=== PATIENT | male | born 1980 | race Caucasian/White ===

== ENCOUNTER 2016-09-01 22:21 | Emergency (ER) | payer BC ==
[~2016-09-01] VITALS: Ht 177.8 cm; Wt 107.8 kg
[~2016-09-01 22:21] MED LIST: ACET-1311 PO; IBUP-103 PO
[2016-09-01 22:31] VITALS: BP 152/96; PULSE 82; TEMP 36.7; O2SAT 96; Ht 177.8 cm; Wt 107.8 kg
--- NOTE | 2016-09-01 22:50 | EMERGENCY ROOM VISIT NOTE ---
ED Visit Note First contact with patient: 22:31 CHIEF COMPLAINT: Right upper dental pain 3 hours HISTORY OF PRESENT ILLNESS: Patient is a 35-year-old white male who presents emergency department for evaluation of right upper dental pain. He states that he has a small cavity in that tooth. He was recently at the dentist where they did work on the adjacent molar which was fractured. He has a temporary filling in place. He is scheduled to go back to the office in 4 days. He states that point they plan to fix the tooth that is presently bothering him. He states the pain became acutely worse this evening just a few hours ago. He tried doing salt water rinses, Orajel and taking Tylenol and ibuprofen, but the pain is steady and severe, radiates to his ear and is making him nauseous. He tried contacting his dentist by the emergency number but did not hear back from them. He rates his pain a 10/10. Denies facial swelling or fever. REVIEW OF SYSTEMS: Review of systems as per HPI. All other systems reviewed were negative. At least 6 systems reviewed. PMH: Electronic medical records are reviewed and summarized as above/below. See Problem List. SOCIAL HISTORY: Patient lives at home with his family. Nonsmoker.. PHYSICAL EXAM: Vital Signs: Reviewed Nurse's notes. CONSTITUTIONAL: Patient is a well-appearing 35-year-old white male who is awake and alert and in no acute distress. Vital signs are stable. EARS: Tympanic membranes intact, not inflamed, have normal contour. External canals clear. MOUTH: Overall the patient has good dentition. There is a temporary filling noted in the right upper rear molar, the adjacent molar has a cavity, and is tender to palpation, no focal abscess or swelling on the gumline. No drainage or discharge present Mucous membranes moist, no lesions, tongue and gums appear normal. THROAT: No pharyngeal injection, exudates, or tonsillar hypertrophy. Airway is patent. No trismus noted. FACE: No facial swelling is appreciated. No cellulitic changes. NECK: No lymphadenopathy. . ED course: Patient was seen and examined as above. He has pain from a right upper molar that has a cavity. There is no evidence for facial cellulitis or Billy's angina. He'll be placed on clindamycin due to his penicillin allergy and will be given oxycodone for pain until he can follow-up with the dentist. There is no drainable abscess at this time. Problem List Medical Problems: (1) Chest pain Status: Resolved (2) Chest pain Status: Resolved (3) Syncope Status: Resolved (4) Syncope Status: Resolved Surgical Problems: (1) History of ear surgery Status: Resolved Current/Historical Medications Scheduled Clindamycin Hcl (Cleocin), 2 CAP PO TID Scheduled PRN Ibuprofen Tab (Advil), 400-600 MG PO Q4H PRN for Pain Oxycodone Immediate Rel Tab (Roxicodone Ir), 1-2 TAB PO Q4H PRN for Severe Pain Allergies Coded Allergies: Penicillins (Verified Adverse Reaction, Mild, NAUSEA VOMITING, 06/23/09) Vital Signs Date Time Temp Pulse Resp B/P Pulse Ox O2 Delivery O2 Flow Rate FiO2 09/01/16 22:31 36.7 82 20 152/96 96 Room Air Medications Administered Medications (Trade) Dose Ordered Sig/Troy Route Start Time Stop Time Status Last Admin Dose Admin Clindamycin HCl (Cleocin 150MG Home Pack) 1 homepack UD ONCE PO 09/01/16 23:00 09/01/16 23:01 DC 09/01/16 23:01 1 HOMEPACK Oxycodone HCl (Roxicodone Immediate Rel 5MG Home Pack) 1 homepack UD ONCE PO 09/01/16 23:00 09/01/16 23:01 DC 09/01/16 23:01 1 HOMEPACK Departure Information Impression Primary Impression: Dentalgia Prescriptions Clindamycin Hcl (CLEOCIN) 150 Mg Cap 2 CAP PO TID for 10 Days, #60 CAP Prov: Madhavi Staley PA 09/01/16 Oxycodone Immediate Rel Tab (ROXICODONE IR) 5 Mg Tab 1-2 TAB PO Q4H Y for Severe Pain, #30 TAB For Initial Treatment Prov: Madhavi Staley PA 09/01/16 Referrals No Doctor, Assigned (PCP) Patient Instructions [facility] Additional Instructions Clindamycin 150 mg: Take 2 tablets 3 times daily for one pill four times daily for 10 days for your dental infection. All antibiotics can cause diarrhea. If this occurs and you feel worse or it does not resolve in 1-2 days follow up with your doctor or return to the Emergency Department as this could be signs of serious underlying problems. Any medication can cause an allergic reaction, stop the pills immediately and return to the ER for rash, hives, breathing difficulties, or swelling. Ibuprofen(Motrin, Advil) may be used for fever or pain. Use 600mg every six hours as needed. Take with food. Avoid using more than 2400mg in a 24 hour period. Do not use 2400mg per day for more than three consecutive days without physician direction. Prolonged inappropriate use can lead to stomach upset or ulcers. (AND/OR) Acetaminophen(Tylenol) may be used for fever or pain. Use 1000mg every six hours as needed. Avoid using more than 4000mg in a 24 hour period. Oxycodone (OxyIR) 5mg: Take 1-2 pills every four hours for breakthrough pain. Avoid alcohol, operating machinery or dangerous equipment, working on ladders or roofs, DRIVING, or situations where being under the influence may be dangerous. It is recommended to use an [id number] stool softener such as Colace, 100mg twice daily while taking this medication to avoid constipation. Saltwater gargles after meals and before bedtime. Soft foods. Followup with your dentist for definitive management. You may also follow up with your primary care physician for pain/care management until you can be seen by your dentist.
[2016-09-01] MEDS ORDERED: OXYC1TAB3 PO (22:53)
[2016-09-01] MEDS ORDERED: CLIN150C PO (22:53)
[2016-09-01] MEDS ORDERED: OXYCODONE IR HOME PACK PO ONE (23:00)
[2016-09-01] MEDS ORDERED: CLINDAMYCIN 150MG HOME PACK PO ONE (23:00)
== END 2016-09-01 23:02 | disposition home or self-care (01) ==
LOC: C.EDB 22:23
DX: K08.89 Other specified disorders of teeth and supporting structures (principal)

== ENCOUNTER → 2017-01-15 | Outpatient (CLI) | payer BC ==
[~2017-01-15] MED LIST changes: -ACET-1311 PO; +OXYC1TAB3 PO
--- NOTE | 2017-01-15 08:00 | DIAGNOSTIC IMAGING REPORT ---
SOFT TISSUE HEAD/NECK-THYROID CLINICAL HISTORY: 36 years-old Male with NECK MASS/LUMP. COMPARISON: Neck ultrasound 09/02/2013, CT neck 08/30/2013 TECHNIQUE: Multiple real time sonographic images of the thyroid were obtained accessing lauren scale appearance and color doppler flow. FINDINGS: Within the posterior neck at the area of concern there is a focal circumscribed somewhat lobulated ovoid wider than tall lesion which is echogenic and appears homogeneous adjacent subcutaneous fat measuring 4.7 x 1.4 x 4.8 cm. This appears similar to the lesion seen on comparison study dated 09/02/2013 which measured 4.1 x 0.7 x 3.0 cm. Additionally, there is a fatty subcutaneous lesion of the right posterior neck compatible with lipoma seen on CT 08/30/2013. IMPRESSION: Encapsulated circumscribed ovoid lesion of the posterior neck at the area of concern is most compatible with a lipoma and appears similar to slightly larger than comparison study dated 09/02/2013. Additionally, this likely correlates with the simple appearing subcutaneous lipoma seen within the posterior right neck on CT cervical spine 08/30/2013. The above report was generated using voice recognition software. It may contain grammatical, syntax or spelling errors. Electronically signed by: Khris Shea M.D. 01/15/2017 7:59 AM Dictated Date/Time: 01/15/2017 7:53 AM
== END | disposition home or self-care (01) ==
LOC: C.ULTR 07:34
PROVIDERS: ATTEND Nurse Practitioner Family
DX: R22.1 Localized swelling, mass and lump, neck (principal)

== ENCOUNTER → 2017-01-21 | Outpatient (CLI) | payer BC ==
--- NOTE | 2017-01-21 14:07 | DIAGNOSTIC IMAGING REPORT ---
CHEST 2 VIEWS ROUTINE HISTORY: COUGH COMPARISON: Chest CTA 10/12/2013. FINDINGS: The lungs are clear. Cardiac silhouette is normal in size. No pleural effusions. No pneumothorax. IMPRESSION: No acute process. Electronically signed by: Temo Louie M.D. 01/21/2017 2:06 PM Dictated Date/Time: 01/21/2017 2:04 PM
== END | disposition home or self-care (01) ==
LOC: C.RADPV 13:30
PROVIDERS: ATTEND Nurse Practitioner
DX: R05 Cough (principal)

== ENCOUNTER → 2017-05-29 | Outpatient (CLI) | payer BC ==
[~2017-05-29] MED LIST changes: -OXYC1TAB3 PO
[2017-05-29 12:42] LABS: BASO % 0.4 %; BASO ABS # 0.03 K/uL (0-0.2); EOS % 3.3 %; EOS ABS # 0.23 K/uL (0-0.5); HEMATOCRIT 44.4 % (42-52); HEMOGLOBIN 15.4 g/dL (14.0-18.0); IG# 0.02 K/uL (0.00-0.02); LYMPH % 29.8 %; LYMPH ABS # 2.05 K/uL (1.2-3.4); MEAN CELL VOLUME 90.1 fL (80-100); MEAN CORPUSCULAR HEMOGLOBIN 31.2 pg (25-34); MEAN CORPUSCULAR HGB CONC 34.7 g/dl (32-36); MEAN PLATELET VOLUME 11.5 fL (7.4-10.4); MONO ABS # 0.62 K/uL (0.11-0.59); NEUT % 57.2 %; NEUT ABS # 3.92 K/uL (1.4-6.5); PLATELET COUNT 271 K/uL (130-400); RED CELL DISTRIBUTION WIDTH CV 12.8 % (11.5-14.5); RED CELL DISTRIBUTION WIDTH SD 41.6 fL (36.4-46.3); WHITE BLOOD COUNT 6.87 K/uL (4.8-10.8)
[2017-05-29 12:49] LABS: PTT PATIENT 28.7 SECONDS (21.0-31.0)
[2017-05-29 13:28] LABS: BLOOD UREA NITROGEN 17 mg/dl (7-18); CARBON DIOXIDE 25 mmol/L (21-32); CREATININE 1.19 mg/dl (0.60-1.40); GLUCOSE 76 mg/dl (70-99); SODIUM 139 mmol/L (136-145)
== END | disposition home or self-care (01) ==
LOC: C.LABPVFM 10:02
PROVIDERS: ATTEND Physician Assistant
DX: Z01.818 Encounter for other preprocedural examination (principal); D17.0 Benign lipomatous neoplasm of skin and subcutaneous tissue of head, face and neck

== ENCOUNTER → 2017-06-03 | Day surgery (SDC) | payer BC ==
[2017-05-30 10:29] VITALS: Ht 177.8 cm; Wt 96.8 kg
[~2017-06-03] VITALS: Ht 177.8 cm; Wt 96.8 kg
[~2017-06-03] MED LIST changes: +ACETAMINOPHEN 325 MG TAB PO PRN; +ATROPINE SULFATE 0.1 MG/ML 5ML SYR IV PRN; +BUPIVACAINE 0.25% 2.5MG/ML PF 10 ML VIAL ONE; +CLINDAMYCIN PHOS 150 MG/ML 2 ML VIAL IV SCH; +DEXAMETHASONE SOD INJ 4 MG/ML VIAL ONE; +EpHEDrine SULFATE INJ 50 MG/ML AMP IV PRN; +FENTANYL CITRATE INJ 50 MCG/1 ML 2 ML VIAL ONE; +FLUMAZENIL 0.1 MG/1 ML 10 ML VIAL IV ONE; +GLYCOPYRROLATE INJ 0.2 MG/ML VIAL ONE; -IBUP-103 PO; +LACTATED RINGER'S 1000ML 1,000 ML IV SCH; +LIDOCAINE HCL 2% 2 ML VIAL (20MG/ML) ONE; +LIDOCAINE/EPINEPHRINE 1% 20 ML VIAL ONE; +METOCLOPRAMIDE HCL INJ 5 MG/ML 2 ML VIAL IV PRN; +MIDAZOLAM HCL 1 MG/ML 2ML VIAL ONE; +NEOSTIGMINE METHYLSULFATE 5 MG/5 ML SYR ONE; +ONDANSETRON INJ 2 MG/ML 2 ML VIAL IV PRN; +ONDANSETRON INJ 2 MG/ML 2 ML VIAL ONE; +OXYCODONE/ACETAMINOPHEN 5-325 TAB PO PRN; +PROPOFOL IV EMULSION 10 MG/ML 20 ML VIAL IV ONE; +SODIUM CHLORIDE 0.9% 1000ML 1,000 ML IV SCH
--- NOTE | 2017-06-03 10:17 | History & Physical Bridge - SC ---
H&P Re-Evaluation Bridge Note: I have examined the patient, reviewed the History & Physical and in the interval since the performance of the History & Physical I have noted the following changes of clinical significance: No changes noted
--- NOTE | 2017-06-03 11:11 | [facility] Post Operative Brief Note ---
Immediate Operative Summary Operative Date Jun 03, 2017. Pre-Operative Diagnosis Right Posterior Neck Lipoma Post-Operative Diagnosis Same Procedure(s) Performed Right Posterior Neck Lipoma Excision Surgeon Dr. Castaneda Spring Layer Surgeon(s) Lala Lujan PA-C Estimated Blood Loss 2 ml Findings subcutaneous lipoma posterior neck Specimens A.) Right Posterior Neck Lipoma Anesthesia local with sedation Complication(s) None Disposition Recovery Room / PACU
--- NOTE | 2017-06-03 11:24 | Discharge Instructions ---
Discharge Instructions Date of Service Jun 03, 2017. Admission Reason for Admission: Lipoma Of Skin And Subcutaneous Tissue Of Neck Discharge Discharge Diagnosis / Problem: lipoma Discharge Goals Goal(s): Decrease discomfort, Improve function Activity Recommendations Activity Limitations: per Instructions/Follow-up section ACTIVITY RECOMMENDATIONS: __Normal activities _x_No bending, lifting or straining __No driving _x_Driving allowed when you are off pain medications _x_Walking permitted __You should have help at home for ___ days DRESSINGS: __No dressings required _x_Keep dressings dry/in place until first office visit or until 48 hours after surgery. Do not put anything on incision __Remove dressings ___ and leave dressings off _x_Apply ice _2-3__ days __Remove dressings and reapply garment __Apply antibiotic ointment (Bacitracin, Neosporin, etc) to wounds 3-4 times/ day for 10 days BATHING: _x_Keep dressings dry _x_Sponge bathing permitted _x_Showering permitted in 48 hours. OK to remove dressing before shower _x_No swimming, hot tubs or soaking in a tub MEDICATIONS: Resume previous medications unless instructed otherwise by your surgeon. _x_Do not use aspirin, Motrin, Advil or Ibuprofen as these may promote bleeding. Please use Tylenol. _x_Prescription(s) provided: pain medications provided at your last office visit OTHER INSTRUCTIONS: __Record drain output 2-3 times per day SPECIAL CARE INSTRUCTIONS: * It is normal to have a mild fever after surgery. If your temperature is higher than 101.5 degrees F, please call the office at [phone]. * Constipation is a typical side effect of pain medication. An over-the- counter stool softener will help relieve this. * Leaking around surgical drains may occur and should not cause concern. Sometimes these drains become clogged. If this happens, remove the bulb and milk the clot out of the tube, then replace the bulb. * Drainage from wounds after liposuction is normal and should be expected. Garments will become soiled. You should protect furniture and bedding. This drainage should mostly subside within 2-3 days. Leave garments in place unless instructed to remove them. * If you have unusual drainage from a wound or are concerned you have an infection or have any questions or concerns, please call the office at [phone]. FOLLOW UP VISIT: If not already scheduled, please call the office, , when you return home after surgery to schedule an appointment. . Current Hospital Diet Patient's current hospital diet: Discharge Diet Recommended Diet: Regular Diet Procedures Procedures Performed: Right Posterior Neck Lipoma Excision Pending Studies Studies pending at discharge: yes List of pending studies: pathology Medical Emergencies . Who to Call and When: Medical Emergencies: If at any time you feel your situation is an emergency, please call 911 immediately. . Non-Emergent Contact Non-Emergency issues call your: Primary Care Provider, Surgeon . "Provider Documentation" section prepared by Alem Lujan. . VTE Core Measure Inpt VTE Proph given/why not?: SCD's [place] Drug Monitoring Program Search Results: no issues identified
[2017-06-03 11:27] VITALS: TEMP 36.8
--- NOTE | 2017-06-03 11:51 | Anesthesiology Progress Note ---
Anesthesia Post Op Note Date & Time Jun 03, 2017 at 11:50 Vital Signs Pain Intensity: 0 Vital Signs Past 12 Hours Date Time Temp Pulse Resp B/P (MAP) Pulse Ox O2 Delivery O2 Flow Rate FiO2 06/03/17 11:27 36.8 115 16 111/61 (78) 95 Room Air 06/03/17 10:12 36.6 67 20 127/73 (91) 98 Room Air Notes Mental Status: alert / awake / arousable, participated in evaluation Pt Amnestic to Procedure: Yes Nausea / Vomiting: adequately controlled Pain: adequately controlled Airway Patency, RR, SpO2: stable & adequate BP & HR: stable & adequate Hydration State: stable & adequate Anesthetic Complications: no major complications apparent
[2017-06-03 11:54] VITALS: BP 123/87; PULSE 95; O2SAT 95
--- NOTE | 2017-06-03 15:38 | OPERATIVE REPORT ---
DATE OF OPERATION: 06/03/2017 PREOPERATIVE DIAGNOSIS: Left posterior neck lipoma. POSTOPERATIVE DIAGNOSIS: Same. PROCEDURE: Excision of subcutaneous lipoma, posterior neck. BRIEF DESCRIPTION OF THE PROCEDURE: Risks, benefits, and alternatives of the procedure were explained to the patient, who agreed and signed consent. He was identified and marked in the preoperative holding area. He was brought to the operating room. He was positioned prone and placed under sedation without incident. Surgical site was prepped and draped sterilely. A time-out procedure was performed. Skin was prepped with ChloraPrep. Drapes were placed. A time-out procedure was performed. 1% lidocaine with epinephrine mixed with 0.25% Marcaine plain was used to anesthetize the area. A 15 blade scalpel was used to make the skin incision through epidermis, underlying dermis and into underlying subcutaneous fat. Within the subcutaneous fat, a lipoma was identified. It was somewhat poorly circumscribed. It was completely excised using a combination of sharp dissection with a curved iris scissor and electrocautery as well as blunt finger dissection. The lipoma was removed in its entirety. Hemostasis was achieved with electrocautery. Lipoma was passed off as specimen. It was within the subcutaneous tissue. The wound was reapproximated using 2-0 Vicryl subcutaneous and deep dermal sutures and 3-0 Monocryl running subcuticular suture. Dermabond followed by dressing was placed. Lipoma measured 4.5 cm. The procedure was tolerated well. The patient was awakened and transferred to recovery room in satisfactory condition. I attest to the content of the Intraoperative Record and any orders documented therein. Any exception s are noted below.
== END | disposition home or self-care (01) ==
LOC: X.SURG 09:42
PROVIDERS: ATTEND Plastic Surgery
DX: D17.0 Benign lipomatous neoplasm of skin and subcutaneous tissue of head, face and neck (principal); I45.10 Unspecified right bundle-branch block; E78.00 Pure hypercholesterolemia, unspecified

== ENCOUNTER 2023-04-22 13:48 | Observation (INO) ==
--- NOTE | 2023-04-22 14:06 | ED Triage Note ---
Date of Service April 22, 2023 Provider in Triage Author: Misty Savage History of Present Illness This patient was briefly evaluated while in triage. An abbreviated physical exam was performed. This patient is a 42-year-old Male who presents to the ED for evaluation of chest pain left arm with numbness and tingling which awoke him from sleep at 3 am. Pt denies any cardiac history, reports strong family history of heart attacks. Pt denies nausea, vomiting, shob, diaphoresis. Physical Exam CONSTITUTIONAL: in no acute pain or distress, resting comfortably SKIN: pink, warm, dry CARDIAC: regular rate and rhythm RESPIRATORY: in no respiratory distress, lungs clear to auscultation ABDOMEN:no TTP MSK: 5/5 throughout NEURO: numbness in left arm. Alert and oriented x 3. Initial orders for labs and / or imaging were placed and patient was placed in the waiting area until a bed is available. Please see further documentation for the full ED course.
--- NOTE | 2023-04-22 14:36 | XRay Report ---
XR chest 1V not portable HISTORY: Hypertension. Chest pain, nonspecific COMPARISON: Chest 04/12/2021. FINDINGS: The cardiac silhouette remains mildly enlarged. The lungs are clear. No pleural effusions. No pneumothorax. No acute fractures identified. IMPRESSION: Stable mild cardiomegaly. Otherwise, no acute process within the chest. ACT 112: Negative or not required by law. Electronically signed by: Temo Louie M.D. 04/22/2023 2:35 PM
[2023-04-22 14:42] LABS: Basophils # (auto) 0.03 K/uL (0.00-0.20); Basophils % (auto) 0.4 %; Eosinophils # (auto) 0.24 K/uL (0.00-0.50); Eosinophils % (auto) 3.3 %; Hematocrit (blood only) 45.4 % (42.0-52.0); Hemoglobin 15.6 g/dl (14.0-18.0); Immature Granulocytes # (auto) 0.02 K/uL (0.01-0.20); Immature Granulocytes % (auto) 0.3 %; Lymphocytes # (auto) 2.09 K/uL (1.20-3.40); Lymphocytes % (auto) 29.1 %; Mean Corpuscular Hemoglobin 30.8 pg (25.0-34.0); Mean Corpuscular Hgb Conc 34.4 g/dL (32.0-36.0); Mean Corpuscular Volume 89.7 fL (80.0-100.0); Mean Platelet Volume 10.4 fL (9.4-12.4); Monocytes # (auto) 0.73 K/uL (0.11-0.59); Monocytes % (auto) 10.2 %; Neutrophils # (auto) 4.06 K/uL (1.40-6.50); Neutrophils % (auto) 56.7 %; Platelet Count 278 K/uL (130-400); RDW Coefficient of Variation 12.6 % (11.5-14.5); RDW Standard Deviation 41.7 fL (36.4-46.3); Red Blood Count 5.06 M/uL (4.70-6.10); White Blood Count 7.17 K/ul (4.8-10.8)
[2023-04-22 14:58] LABS: Alanine Aminotransferase 33 U/L (7-52); Albumin Globulin Ratio 1.4 (0.9-2); Albumin Level 4.7 gm/dl (3.4-5.0); Alkaline Phosphatase 69 U/L (34-104); Anion Gap 7 (3-11); Aspartate Aminotransferase 26 U/L (13-39); BUN Creatinine Ratio 15.7 (10-20); Bilirubin,Total 0.6 mg/dl (0.2-1.0); Blood Urea Nitrogen 19 mg/dl (6-23); Calcium 9.5 mg/dl (8.6-10.3); Carbon Dioxide 27 mmol/L (21-32); Chloride 104 mmol/L (98-107); Creatinine Clr Calc Pharmacy 91.7 ml/min; Est GFR (African American) 83.9 ml/min; Est GFR (Non-African American) 72.4 ml/min; Globulin 3.4 gm/dl (2.5-4.0); Glucose 89 mg/dl (70-99(Fasting)); Lipase 13 U/L (11-82); Potassium 4.1 mmol/L (3.5-5.1); Sodium 138 mmol/L (136-145); Total Protein 8.1 gm/dl (6.0-8.3)
[2023-04-22 15:04] LABS: Troponin I High Sensitivity < 2.3 pg/ml (0-20)
--- NOTE | 2023-04-22 16:07 | Electrocardiogram Report ---
Test Reason : Blood Pressure : / mmHG Vent. Rate : 074 BPM Atrial Rate : 074 BPM P-R Int : 162 ms QRS Dur : 100 ms QT Int : 396 ms P-R-T Axes : 042 003 025 degrees QTc Int : 439 ms Normal sinus rhythm RSR' or QR pattern in V1 suggests right ventricular conduction delay Borderline ECG When compared with ECG of 12-APR-2021 21:46, No significant change was found Confirmed by Guzman Reddy ([id number]) on 04/22/2023 4:07:31 PM Referred By: REFERRED SELF Confirmed By:Guzman Reddy
[2023-04-22] MEDS ORDERED: NITROGLYCERIN SL 0.4 MG/TAB TAB SL STA (17:23)
[2023-04-22] MEDS ORDERED: ASPIRIN CHEW 324 MG PO STA (17:23)
--- NOTE | 2023-04-22 17:25 | Emergency Department Note ---
Impression & Plan Chest pain ED Provider Note NAME: JOSHUA MALONE AGE: 42 SEX: M : 1980 ARRIVES VIA: Walk-In INFORMANT: Patient, ED PROVIDER(S): Raymond Gómez MD CHIEF COMPLAINT: Chest pain HPI: This is a 42-year-old male presenting for left-sided chest pain. Patient states that this morning his woke up at 3 in the morning with left-sided chest pain. Scribes as a 8/10 in severity. Describes it as a squeezing sensation like "his heart cannot pop out ". He went to work and noticed that it was not getting better. Exertion did not improve the pain. Movement does not improve or worsen the pain either. He has no pleurisy or shortness of breath. He does have radiation of the chest pain going from his left chest into his left arm down to the elbow. He notes it feels somewhat numb. He has had no nauseousness or vomiting. He also notes he has had a few months history of leg swelling bilaterally. He notes he is not putting on weight very quickly, which he attributes possibly to his leg swelling. ROS: See above HPI for pertinent positives & negatives. A total of 10 systems reviewed and were otherwise negative. PAST MEDICAL HISTORY: See Below PAST SURGICAL HISTORY: See Below FAMILY HISTORY: See Below SOCIAL HISTORY: See Below HOME MEDICATIONS: See Below ALLERGIES: See Below VITALS: See Below PHYSICAL EXAMINATION: General: resting comfortably in no acute distress Head: Normocephalic and atraumatic Eyes: Normal inspection, extraocular muscles intact Ear, nose, throat: Normal external exam Neck: Normal range of motion Respiratory: lungs clear to auscultation bilaterally Cardiovascular: Regular rate/rhythm, no murmur GI: soft, nontender, no guarding or rebound Extremities: nontender, moves all extremities, 2+ pulses in all extremities Neuro: The patient awake and alert, appropriately conversive, no focal deficits, symmetric faces Skin: Warm, dry, and intact MEDICAL DECISION MAKING: This is a 42-year-old male presenting for left-sided chest pain. X-ray done at triage does show cardiomegaly without signs of pulmonary vascular congestion or pleural effusions. He also notes bilateral lower extremity edema, he has 1+ pitting edema to bilateral lower extremities. He has persistent chest pain since 3 AM without any worsening or improving symptoms. Does not appear to musculoskeletal as there is no change in pain with palpation, movement. Patient extensive family history of cardiac disease, father had HI in early 40s, grandfather had HI in early 40s as well. Believe the patient would benefit from admission for cardiac rule out as well as workup of bilateral lower extremity edema concerning for CHF. Discussed with Dr. Cantrell for admission. Differential diagnosis: ACS, low concern for PE, CHF ER treatment provided: See below Diagnostics interpreted by me: ECG: ECG independently interpreted by me with normal sinus rhythm, rate of 74, normal NM, normal QRS, normal QTc, no ST segment elevations consistent with STEMI criteria Cardiac Monitoring: An order was placed for continuous cardiac monitoring. The monitor shows a rate of 70 with sinus rhythm Laboratory studies: As stated above and show below. Imaging studies: See below. Past Med/Surg History Social History Smoking Status: Never smoker Hx Alcohol Use: Yes Hx Substance Use: No Preferred Language: Cypriot Communication Ability: Effective Candle Molder Machine Required: No Beliefs That Will Affect Care: None Current Living Situation: Spouse Feels Safe at Home: Yes Assistive Devices: None Allergies Allergies Allergy/AdvReac Type Severity Reaction Status Date / Time amoxicillin Allergy Unknown Verified 03/19/23 11:47 Penicillins AdvReac Mild NAUSEA Verified 01/11/21 20:02 VOMITING Home Meds Home Medications Medication Instructions Recorded Confirmed No Known Home Medications 03/19/23 04/22/23 Previous Rx's Medication Instructions Recorded furosemide 20 mg tablet (Lasix) 20 mg PO QAM PRN edema #14 tabs 04/23/23 potassium chloride 10 mEq 10 meq PO DAILY PRN only when you 04/23/23 capsule,extended release take furosemide #14 caps Results & Data (ED) Vital Signs Vital Signs - 24 hr 04/22/23 14:05 Temperature 36.3 C L Temperature Source Temporal Artery Scan Pulse Rate 84 Respiratory Rate 20 Respiratory Effort / Characteristics Non-Labored Respiratory Depth Normal Blood Pressure 159/110 H Blood Pressure Mean 126 Pulse Oximetry 97 Oxygen Delivery Method Room Air Sepsis Recent Fever Within 48 Hours No Sepsis New/Unexplained Change in Mental Status N/A Sepsis Action Taken by Nursing No Action Required Laboratory Data 04/23/23 06:59 04/23/23 06:59 Lab Results 04/22/23 Range/Units 14:20 WBC 7.17 (4.8-10.8) K/ul RBC 5.06 (4.70-6.10) M/uL Hgb 15.6 (14.0-18.0) g/dl Hct 45.4 (42.0-52.0) % MCV 89.7 (80.0-100.0) fL MCH 30.8 (25.0-34.0) pg MCHC 34.4 (32.0-36.0) g/dL RDW Std Deviation 41.7 (36.4-46.3) fL RDW Coeff of Ignacio 12.6 (11.5-14.5) % Plt Count 278 (130-400) K/uL MPV 10.4 (9.4-12.4) fL Immature Gran % (Auto) 0.3 % Neut % (Auto) 56.7 % Lymph % (Auto) 29.1 % Sunflower % (Auto) 10.2 % Eos % (Auto) 3.3 % Baso % (Auto) 0.4 % Neut # (Auto) 4.06 (1.40-6.50) K/uL Lymph # (Auto) 2.09 (1.20-3.40) K/uL Sunflower # (Auto) 0.73 H (0.11-0.59) K/uL Eos # (Auto) 0.24 (0.00-0.50) K/uL Baso # (Auto) 0.03 (0.00-0.20) K/uL Immature Gran # (Auto) 0.02 (0.01-0.20) K/uL ESR 9 (0-15) mm/hr Sodium 138 (136-145) mmol/L Potassium 4.1 (3.5-5.1) mmol/L Chloride 104 (98-107) mmol/L Carbon Dioxide 27 (21-32) mmol/L Anion Gap 7 (3-11) BUN 19 (6-23) mg/dl Creatinine 1.21 (0.6-1.4) mg/dl Est Cr Clr Drug Dosing 91.7 ml/min Est GFR ( Amer) 83.9 ml/min Est GFR (Non-Af Amer) 72.4 ml/min BUN/Creatinine Ratio 15.7 (10-20) Glucose 89 (70-99(Fasting)) mg/dl Calcium 9.5 (8.6-10.3) mg/dl Total Bilirubin 0.6 (0.2-1.0) mg/dl AST 26 (13-39) U/L ALT 33 (7-52) U/L Alkaline Phosphatase 69 (34-104) U/L Troponin I High Sens < 2.3 (0-20) pg/ml C-Reactive Protein 0.91 H (0-0.5) mg/dl Total Protein 8.1 (6.0-8.3) gm/dl Albumin 4.7 (3.4-5.0) gm/dl Globulin 3.4 (2.5-4.0) gm/dl Albumin/Globulin Ratio 1.4 (0.9-2) Lipase 13 (11-82) U/L Administered Medications Discontinued Medications Al Hydrox/Mg Hydrox/Simethicone (Aluminum/Magnesium Susp 30 Ml Udc) 30 ml PO NOW STA Stop: 04/22/23 20:54 Last Admin: 04/22/23 21:28 Dose: 30 ml Documented By: AB Aspirin (Aspirin Chew 324 Mg) 324 mg PO NOW STA Stop: 04/22/23 17:24 Last Admin: 04/22/23 17:53 Dose: 324 mg Documented By: AB Famotidine (Pepcid 20mg Iv Push) 20 mg in 5 mls @ 2.5 mls/min IV NOW STA Stop: 04/22/23 20:56 Last Admin: 04/22/23 21:28 Dose: 2.5 mls/min Documented By: AB Ioversol (Optiray 320 125ml) 117 ml IV ONCE ONE Stop: 04/22/23 23:16 Last Admin: 04/22/23 23:15 Dose: 117 ml Documented By: GARRY Nitroglycerin (Nitroglycerin Sl 0.4 Mg/Tab Tab) 0.4 mg SL NOW STA Stop: 04/22/23 17:24 Last Admin: 04/22/23 17:53 Dose: 0.4 mg Documented By: Imaging Data Radiologist's Impression: Chest X-Ray 04/22/23 14:06 XR chest 1V not portable HISTORY: Hypertension. Chest pain, nonspecific COMPARISON: Chest 04/12/2021. FINDINGS: The cardiac silhouette remains mildly enlarged. The lungs are clear. No pleural effusions. No pneumothorax. No acute fractures identified. IMPRESSION: Stable mild cardiomegaly. Otherwise, no acute process within the chest. ACT 112: Negative or not required by law. Electronically signed by: Temo Louie M.D. 04/22/2023 2:35 PM Discharge Plan Visit Data Chief Complaint: Chest Pain Stated Complaint: REF BY DR, CHEST PAIN, ARM PAIN ED Provider: Raymond Gómez Discharge Problem: Chest pain Patient Disposition: Admitted As Inpatient Discharge Instructions Interventions: ED Discharge Assessment Last Done: 04/22/23 21:41
--- NOTE | 2023-04-22 18:49 | History & Physical Report ---
Date of Service April 22, 2023 Assessment & Plan (1) Chest pain: Plan: Constant, squeezing CP developed around 0300 on 04/22 No prior hx of PR Fam Hx of MIs in their 40s (father, gpa, great-gpa) Pain radiates down L arm; constant (does not wax/wane) ASA 324 mg, nitro 0.4 mg given in the ED Troponin negative x2 EKG NSR at 74 bpm CXR with stable mild cardiomegaly, otherwise NAF CRP mildly elevated at 0.91 ESR WNL at 9 Of note, patient endorses new onset +2 pitting edema that began 2 months ago; also, 2 episodes of severe 10/10 pain in LLE over the past couple weeks US Doppler LEs revealed no evidence of DVT D-dimer Negative BNP WNL at 4 Protein/creatinine ratio ordered, pending Continuous telemetry monitoring CTA Chest ordered, pending Plan is to have stress echo done tomorrow morning Nitroglycerin 0.4 mg SL as needed for chest pain A.m. CBC, BMP Plan Disposition: Obs - Admit to [facility]Sur telemetry Full code AHA diet VTE PPx: Will defer for now History of Present Illness Chief Complaint: Chest pain Primary Care Provider: Aria Jung MD Lalo is a pleasant 42-year-old male with PMH of syncope (secondary to pleurisy) and nephrolithiasis. He presented for chest pain that started at 0300 on 04/22. The chest pain woke him up from sleep, and he said he felt his heart was beating out of his chest, and that he had bounding pulses in his feet/hands. He was able to fall back asleep after a while, but woke up at 0600 with left-sided chest pain. He describes the pain as constant (no waxing or waning), and describes it as "chest pressure" that is located at his left armpit and wraps around to his left anterior chest wall and left upper back. He rates the pain 5 out of 10. He has never had a similar episode like this one. The pain radiates down his left arm. He notes that leaning forward in a seated position, and then leaning back causes some alleviation/exacerbation of pain. He denies pleuritic CP or SOB. No recent sick contacts. No history of GERD. No recent changes in diet, and patient says he eats a fairly low-salt diet. He has not noticed any tick bites on his body recently. Of note, he has had bilateral lower extremity swelling x2 months. He relays a history of sharp left lower leg pain twice over the past 2 weeks; which has been 10 out of 10 when it comes on. He also endorses recent weight gain of 20 pounds over the past 3 months. Patient endorses minimal, social alcohol use; denies smoking, tobacco use, recreational drug use. Hx of one syncopal episode 10-12 years ago, which was secondary to dehydration/pleurisy. Patient does not take medications on a daily basis. Vital stable at time admission. ED course: Nitro 0.4 mg SL Aspirin 324 mg p.o. ROS: Patient endorses headache, recent weight gain, left chest discomfort, and bilateral lower extremity pitting/swelling. Patient denies fever, chills, night sweats, dizziness, lightheadedness, pleuritic CP, SOB, cough, abdominal pain, N/B/D, urinary symptoms, numbness and tingling down the legs bilaterally. Family history: Significant history of father, grandfather, and great grandfather all having MIs in their 40s. No personal PMH of PR, CVA, DVT/PE, DM. Allergies Allergy/AdvReac Type Severity Reaction Status Date / Time amoxicillin Allergy Unknown Verified 03/19/23 11:47 Penicillins AdvReac Mild NAUSEA Verified 01/11/21 20:02 VOMITING Home Medications Medication Instructions Recorded Confirmed Type No Known Home Medications 03/19/23 04/22/23 History Past Med/Surg History Social History Smoking Status: Never smoker Hx Alcohol Use: Yes Hx Substance Use: No Preferred Language: Jordanian Communication Ability: Effective Pipefitter Required: No Beliefs That Will Affect Care: None Current Living Situation: Spouse Other Information That Helps Us Care for You: No Feels Safe at Home: Yes Safety Concerns: Feels Safe At This Time Assistive Devices: None Review of Systems Review of Systems: See HPI above Physical Exam Physical Exam: General: no acute distress; pleasant affect; non-toxic appearing; well- nourished; cooperative HEENT: normocephalic, atraumatic; no scleral icterus; PERRLA w/ EOMs intact; moist mucus membrane; vision and hearing grossly intact Neck: supple; no JVD; no lymphadenopathy; trachea midline; no neck pain with shrugging, rotation Skin: warm, dry without signs of tenting; no cyanosis; no rashes, bruising, lesions, or erythema noted CV: chest wall NTP; RRR; S1/S2 normal; no murmurs/gallops; possible rub auscultated at the upper left posterior back; pulses intact and symmetric at radial, DP, and PT Lungs: no acute respiratory distress; symmetrical chest wall expansion; clear breath sounds across all lung josé w/o adventitious sounds; no wheezing ABD: Soft, NTP; BS present; no rebound/guarding; no ascites; no distention; negative CVA tenderness MSK: no tics or fasciculations; +2 pitting edema in the LEs B/L; patient demonstrates ability to wiggle toes Neuro: A&Ox3; normal mood and affect; fluent speech; no focal deficits; sensati on grossly intact in LEs B/L Results & Data Results & Data Vital Signs (Past 12 Hours) Vital Signs Temp Pulse Pulse Resp BP BP Pulse Ox 04/22/23 18:23 83 04/22/23 17:55 85 18 97 04/22/23 17:55 97 04/22/23 17:44 72 18 136/96 97 04/22/23 14:05 36.3 C L 84 20 159/110 H 97 O2 Del Method 04/22/23 18:23 04/22/23 17:55 Room Air 04/22/23 17:55 Room Air 04/22/23 17:44 Room Air 04/22/23 14:05 Room Air Laboratory Results Abnormal lab results 04/22/23 Range/Units 14:20 [place] # (Auto) 0.73 H (0.11-0.59) K/uL Diagnostic Findings Chest X-Ray 04/22/23 14:06 XR chest 1V not portable HISTORY: Hypertension. Chest pain, nonspecific COMPARISON: Chest 04/12/2021. FINDINGS: The cardiac silhouette remains mildly enlarged. The lungs are clear. No pleural effusions. No pneumothorax. No acute fractures identified. IMPRESSION: Stable mild cardiomegaly. Otherwise, no acute process within the chest. ACT 112: Negative or not required by law. Electronically signed by: Temo Louie M.D. 04/22/2023 2:35 PM Venous Doppler Study 04/22/23 18:34 ULTRASOUND BILATERAL LOWER EXTREMITY VENOUS CLINICAL HISTORY: Lower extremity edema. COMPARISON STUDY: No priors. TECHNIQUE: Real-time, grayscale, and color Doppler sonography of the deep veins of the right and left lower extremity was performed from the inguinal crease to the calf. Compression and augmentation were utilized. FINDINGS: There is no sonographic evidence of deep venous thrombosis identified in the right or left lower extremity. The common femoral, superficial femoral, and popliteal veins are patent and normally compressible bilaterally. The greater saphenous vein and the profunda femoris vein at the junction with the common femoral vein are clear in both legs. The visualized calf veins are patent bilaterally. IMPRESSION: There is no sonographic evidence of deep venous thrombosis identified in the right or left lower extremity. ACT 112: Negative or not required by law. Electronically signed by: Chito Callahan M.D. 04/22/2023 8:01 PM Code Status & VTE Plan Code Status Full code VTE Prophylaxis Plan VTE Prophylaxis will be ordered: Yes Supervising Physician Co-Signing Physician Notes I personally saw and examined the patient. I independently reviewed the labs, EKG, imaging, problem list, medication list, past medical history and family history. I verified all villanueva points and agree with Temo Larkin PA-C with the following exceptions and/or additions: 42 year old male presents to the ER with chest pain radiating to left arm and back. No exacerbating event. Strong family history of heart attacks. Possibly better in leaning completely forward but not a strong positional component. No worse on inspiration or exertion. Ongoing constant pain without relief. O/E HS RRR, no murmurs, Chest CTAB, Unable to reproduce pain on exam, Abdo SNT, peripheral pulses equal A/P Chest pain - re-evaluated at multiple times. No improvement with famotidine/Maa lox. CRP/ESR unremarkable for pericarditis and not a significant positional component. D-dimer negative however given ongoing pain without a good alternative explanation CT angiogram for dissection performed - also negative. Stress echo ordered for tomorrow. Unclear etiology at this time but given very unlikely ACS will use acetaminophen 1st line and Toradol 2nd line for pain. Leg edema - no DVT on venous Doppler, LFTs normal, not urine protein, TSH normal. reports increased snoring ?obstructive sleep apnea with right sided heart strain vs. venous insufficiency. PG Care Time/CCT Total # of Minutes Spent Total Time Spent with Patient: Total time spent is greater than 50% in coordination of care (as documented) at patient's floor/unit and/or counseling patient: [place] [address] INT INP/OBS CARE 3/75MIN Patient Type New Medical Decision Making Moderate Complexity Diagnoses Chest pain R07.9
[2023-04-22 19:13] LABS: C Reactive Protein 0.91 mg/dl (0-0.5)
--- NOTE | 2023-04-22 20:03 | Ultrasound Report ---
ULTRASOUND BILATERAL LOWER EXTREMITY VENOUS CLINICAL HISTORY: Lower extremity edema. COMPARISON STUDY: No priors. TECHNIQUE: Real-time, grayscale, and color Doppler sonography of the deep veins of the right and left lower extremity was performed from the inguinal crease to the calf. Compression and augmentation wer e utilized. FINDINGS: There is no sonographic evidence of deep venous thrombosis identified in the right or left lower extremity. The common femoral, superficial femoral, and popliteal veins are patent and normally compressible bilaterally. The greater saphenous vein and the profunda femoris vein at the junction w ith the common femoral vein are clear in both legs. The visualized calf veins are patent bilaterally. IMPRESSION: There is no sonographic evidence of deep venous thrombosis identified in the right or lef t lower extremity. ACT 112: Negative or not required by law. Electronically signed by: Chito Callahan M.D. 04/22/2023 8:01 PM
[2023-04-22 20:37] LABS: Troponin I High Sensitivity 2.4 pg/ml (0-20)
[2023-04-22 20:51] LABS: D Dimer < 190 ug/L FEU (0-500); Partial Thromboplastin Ratio 1.1; Partial Thromboplastin Time 32 Seconds (21-31); Prothrombin Time 11.3 Seconds (9.0-12.0)
[2023-04-22] MEDS ORDERED: FAMOTIDINE 20 MG in SYRINGE 3 ML IV STA (20:53)
[2023-04-22] MEDS ORDERED: ALUMINUM/MAGNESIUM SUSP 30 ML UDC PO STA (20:53)
[2023-04-22] MEDS ORDERED: FAMOTIDINE 20MG IV PUSH 20 MG/5 ML SYR IV STA (20:55)
[2023-04-22 21:08] LABS: Appearance Urine Clear (Clear); Bilirubin Urine Negative (Negative); Blood Urine Negative (Negative); Color Urine Yellow; Glucose Urine UA Negative (Negative); Ketones Urine Negative (Negative); Leukocyte Esterase Urine Negative (Negative); Nitrite Urine Negative (Negative); Protein Urine Negative (Negative); Specific Gravity Urine 1.013 (1.000-1.030); Urobilinogen Urine Negative (Negative); pH Urine 6.5 (4.5-7.5)
[2023-04-22 21:31] LABS: Creatinine Urine Random 111.4 mg/dl
[2023-04-22 22:00] LABS: Magnesium 2.2 mg/dl (1.7-2.4)
[2023-04-22] MEDS ORDERED: NITROGLYCERIN SL 0.4 MG/TAB TAB SL PRN (22:06)
[2023-04-22] MEDS ORDERED: ACETAMINOPHEN 325 MG TAB PO PRN (22:06)
[2023-04-22 22:20] LABS: Thyroid Stimulating Hormone 3.587 uIu/ml (0.300-4.500)
[2023-04-22] MEDS ORDERED: OPTIRAY 320 125ml IV ONE (23:15)
--- OUTSIDE RECORDS SUMMARY | 2023-04-23 00:07 | External Medical Summary | Continuity of Care Document ---
Author Name Unknown Organization [address] Address [address] [place] [address] [place], [place] [id number] Care Team Providers Care Front Line Leader Name Role Phone Miguelina Stanley Primary Care Physician [phone] Encounter [facility] [id number] Date(s): 02/10/23 - 02/10/[address] [facility] [address], [address] [place] [address] [phone] Encounter Diagnosis Left flank pain(Discharge Diagnosis) - 02/10/23 Discharge Disposition: Home or Self Care Attending Physician: Thuy Alvarez DO, Mariana Annette Referring Physician: Thuy Alvarez DO, Mariana Annette Allergies, Adverse Reactions, Alerts Substance Reaction Severity Status penicillin vomit, sick, lighthead Activ e Assessment and Plan Extracted from: Title:Office Visit Note Author:Thuy Alvarez DO, Mariana Annette Date:02/10/23 1.Left flank pain STATUS:acute DATA:UA and CT ordered GOAL:resolution PLAN:suspect renal pathology more likely than MSK. Will order UA, BMP and CT abd/pelvis w/o contrast. Immunizations Given and Recorded Vaccine Date Status Refusal Reason tetanus/diphtheria/pertuss, acel (Tdap) 12/10/19 G iven tetanus/diphtheria/pertuss, acel (Tdap) 1 05/19/03 Recorded 1Result Comment: 2019-12-10: Historical information-source unspecified Medications Albuterol (Eqv-ProAir HFA) 90 mcg/inh inhalation aerosol Start: 04/09/21 15:58:00 EST, 2 puff, inhaled, q6h, Disp# 1 each, Refills: 0, Pharmacy: [facility] Start Date: 04/09/21 Stop Date: 05/09/21 Status: Ordered albuterol 90 mcg/inh inhalation powder Start: 04/09/21 14:37:00 EST, 2 puff, inhaled, q6h, Disp# 1 each, PRN: cough/wheezing, Pharmacy: [facility] Start Date: 04/09/21 Status: Ordered Mental Status 02/10/23 Barriers to Learning one year None evide nt Mandatory Health Literacy Documentation Yes Health Literacy Communication Barriers N ever Primary Language Libyan Problem List Condition Confirmation Course Effective Dates Status H ealth Status Informant Obesity (BMI 30-39.9) Confirmed Active Family history of hypertension Confirmed Active Osteoarthritis of left knee Confirmed Active Diagnosis Diagnosis Type Effective Dates Health Status Cl inical Service Informant Left flank pain Discharge Diagnosis 02/10/23 Non-Specified Procedures Procedure Date Related Diagnosis Body Site Status Left ear 05/19/08 Completed Results Laboratory List Name Date Basic Metabolic Panel. (Basic Metabolic Panel-ARLN) 02/10/23 Most recent to oldest [Reference Range]: 1 Color [facility] [YELLOW] YELLOW 1 (02/10/23 12:00 AM) Appearance [facility] [CLEAR] CLEAR 2 (02/10/23 12:00 AM) Specific Wisner UA[facility] [1.001-1.035] 1.010 3 (02/10/23 12:00 AM) pH [facility] [5.0-8.0] < OR = 5.0 4 (02/10/23 12:00 AM) Glucose [facility] [NEGATIVE-NEGATIVE] NEG ATIVE 5 (02/10/23 12:00 AM) Bilirubin [facility] [NEGATIVE-NEGATIVE] N EGATIVE 6 (02/10/23 12:00 AM) Ketones [facility] [NEGATIVE-NEGATIVE] NEG ATIVE 7 (02/10/23 12:00 AM) Occult Blood [facility] [NEGATIVE-NEGATIVE ] NEGATIVE 8 (02/10/23 12:00 AM) Protein [facility] [NEGATIVE-NEGATIVE] NEG ATIVE 9 (02/10/23 12:00 AM) Nitrite [facility] [NEGATIVE-NEGATIVE] NEG ATIVE 10 (02/10/23 12:00 AM) Leuk Est [facility] [NEGATIVE-NEGATIVE] NE GATIVE 11 (02/10/23 12:00 AM) BUN-[facility] [7-25 mg/dL] 21 mg/dL 12 (02/10/23 12:18 PM) Creatinine-Quest [0.60-1.29 mg/dL] 1.31 mg/dL 13 *HI* (02/10/23 12:18 PM) BUN/Creat Ratio-Quest [6-22 (calc)] 16 ( calc) 14 (02/10/23 12:18 PM) Na-[facility] [135-146 mmol/L] 138 mmol/L 15 (02/10/23 12:18 PM) K-[facility] [3.5-5.3 mmol/L] 4.6 mmol/L 16 (02/10/23 12:18 PM) Cl-[facility] [98-110 mmol/L] 104 mmol/L 17 (02/10/23 12:18 PM) CO2-Quest [20-32 mmol/L] 25 mmol/L 18 (02/10/23 12:18 PM) Ca-[facility] [8.6-10.3 mg/dL] 9.9 mg/dL 19 (02/10/23 12:18 PM) eGFR-QST [> OR = 60 mL/min/1.73m2] 69 mL /min/1.73m2 20 (02/10/23 12:18 PM) Glucose-Qst [65-99 mg/dL] 83 mg/dL 21 (02/10/23 12:18 PM) 1Result Comment: Specimen Received d/t: 02/11/2023 05:59:00 [facility] test performed by: [email or web address] [address] [place] [address] Brian Monique MD 2Result Comment: Specimen Received d/t: 02/11/2023 05:59:00 Lab test performed by: [employer] [email or web address] [address] [place] [address] Brian Monique MD 3Result Comment: Specimen Received d/t: 02/11/2023 05:59:00 Lab test performed by: [employer] [email or web address] [address] [place] [address] Brian Monique MD 4Result Comment: Specimen Received d/t: 02/11/2023 05:59:00 Lab test performed by: [employer] [facility] [employer] [address] [place] [address] Brian Monique MD 5Result Comment: Specimen Received d/t: 02/11/2023 05:59:00 Lab test performed by: [employer] [facility] [employer] [address] [place] [address] Brian Monique MD 6Result Comment: Specimen Received d/t: 02/11/2023 05:59:00 Lab test performed by: [employer] [facility] [employer] [address] [place] [address] Brian Monique MD 7Result Comment: Specimen Received d/t: 02/11/2023 05:59:00 Lab test performed by: [employer] [facility] [employer] [address] [place] [address] Brian Monique MD 8Result Comment: Specimen Received d/t: 02/11/2023 05:59:00 Lab test performed by: [employer] [facility] [employer] [address] [place] [address] Brian Monique MD 9Result Comment: Specimen Received d/t: 02/11/2023 05:59:00 Lab test performed by: [employer] [facility] [employer] [address] [place] [address]Ambar Monique MD 10Result Comment: Specimen Received d/t: 02/11/2023 05:59:00 Lab test performed by: [employer] [facility] [employer] [address] [place] [address]Ambar Monique MD 11Result Comment: FASTING: UNKNOWN Specimen Received d/t: 02/11/2023 05:59:00 Lab test performed by: [employer] [facility] [employer] [address] [place] [address]Ambar Monique MD 12Result Comment: Specimen Received d/t: 02/11/2023 13:48:00 Lab test performed by: [employer] [facility] [employer] [address] [place], [place] Dayan Monique MD 13Result Comment: Specimen Received d/t: 02/11/2023 13:48:00 Lab test performed by: [employer] [facility] [employer] [address] [place] Dayan Monique MD 14Result Comment: Specimen Received d/t: 02/11/2023 13:48:00 Lab test performed by: [employer] [facility] [employer] [address] [place], [place] Dayan Monique MD 15Result Comment: Specimen Received d/t: 02/11/2023 13:48:00 Lab test performed by: [employer] [facility] [employer] [address] [place], [place] Dayan Monique MD 16Result Comment: Specimen Received d/t: 02/11/2023 13:48:00 Lab test performed by: [employer] [facility] [employer] [address] [place], [place] Dayan Monique MD 17Result Comment: Specimen Received d/t: 02/11/2023 13:48:00 Lab test performed by: [employer] [facility] [employer] [address] [place], [place] Dayan Monique MD 18Result Comment: Specimen Received d/t: 02/11/2023 13:48:00 Lab test performed by: [employer] [facility] [employer] [address] [place], [place] Dayan Monique MD 19Result Comment: Specimen Received d/t: 02/11/2023 13:48:00 Lab test performed by: [employer] [facility] [employer] [address] [place] [place] Dayan Monique MD 20Result Comment: Specimen Received d/t: 02/11/2023 13:48:00 Lab test performed by: [employer] [facility] [employer] [address] [place] [place] Dayan Monique MD 21Result Comment: Fasting reference interval Specimen Received d/t: 02/11/2023 13:48:00 Lab test performed by: [email or web address] [address] [place] [address] Brian Monique MD Vital Signs Most recent to oldest [Reference Range]: 1 Patient Weight 115.0 kg (02/10/23 8:13 AM) Temperature [36.5-37.9 DegC] 36.1 DegC *LOW* (02/10/23 8:13 AM) Respiratory Rate 14 br/min (02/10/23 8:13 AM) Blood Pressure 128/74mmHg (02/10/23 8:13 AM) Cuff Pulse Pressure 54 mmHg (02/10/23 8:13 AM) Social History Social History Type Response Smoking Status Never smoked cigaret deisi Sex Male FCM Outpt Note * Thuy Alvarez DO, Mariana Annette: PERFORM Event Display: FCM Outpt Note Authored Date: [id number] Chief Complaint Pt c/o left upper back pain for the last 2 months. Pt states you can feel a lump/palpable area. Pain described as a consistent dull ache. History of Present Illness 42 yo M presents for acute visit Endorses left flank pain for 2 months started without injury describes as a dull ache notes worse painif he has to urinate and he holds it Gets a little worse in the afternoon. No change is he does heavy lifting or moreactivity. Has hx of kidney stones, but does not feel like that. No fever, chills, SOB, CP, cough, abd pain. Denies hematuria, dysuria, urinary frequency. Physical Exam Vitals & Measurements T:36.1C RR:14 BP:128/74 SpO2:98% WT:115.000kg(Dosing) WT:115.0kg PHQ2 Data(Data Documented on:02/10/2023 08:13) Emotional health assessment NEGATIVE General: _Alert and oriented, No acute distress Cardiovascular: _Normal rate, Regular rhythm, No murmur, No gallop. Respiratory: _Lungs are clear to auscultation, Respirations are non-labored, Breath sounds are equal Back: No rash, no deformity. Tenderness to palpation over left flank (around 12th rib), no tenderness in upper thoracics or lumbars. No masses. No CVA tenderness. Assessment/Plan 1.Left flank pain STATUS:acute DATA:UA and CT ordered GOAL:resolution PLAN:suspect renal pathology more likely than MSK. Will order UA, BMP and CT abd/pelvis w/o contrast. Attestation Time spent: Pre-visit plannin Mnvl-ux-sacu visit: 18 Post-visit (orders/documentation/coordination of care):10 Total visit time: 30 Problem List/Past Medical History Ongoing Family history of hypertension Obesity (BMI 30-39.9) Osteoarthritis of left knee Procedure/Surgical History Left ear (05/19/2008) Medications albuterol(albuterol 90 mcg/inh inhalation powder), 2 puff, inhaled, q6h, PRN albuterol(Albuterol (Eqv-ProAir HFA) 90 mcg/inh inhalation aerosol), 2 puff, inhaled, q6h Allergies penicillinvomit, sick, lighthead Social History Smoking Status Never smoked cigarettes Alcohol - Low Risk Use:Current Type:Beer, Wine, Liquor Frequency:1-2 times per week Exercise - Does not exercise Nutrition/Health - Low Risk Substance Abuse - Denies Substance Abuse Tobacco - Denies Tobacco Use Family History Cancer: MGM. Hypertension: Father and PGF. [place] (myocardial infarction)...: Father and PGF. Health Status Family Member(s) Immunizations Vaccine Date Status tetanus/diphtheria/pertuss, acel (Tdap) 12/10/2019 Given tetanus/diphtheria/pertuss, acel (Tdap) 05/19/2003 Recorded Comments : 2019-12-10: Historical information-source unspecified Recommendations Health Maintenance Pending(in the next year) OverDue Adult Influenza Vaccine due11/16/22and every 1year Body Mass Index due12/04/22and every 1year Due Adult COVID-19 Vaccination due02/10/23Unknown Frequency Hepatitis C Screening due02/10/23One-time only Satisfied(in the past 1 year) There are no satisfied recommendations within the defined date range Electronic Signature on File Electronically Reviewed/Signed by: Monica Alvarez DO Author Signature Dt/Tm:02/10/2023 08:45 AM Department of Family Medicine [facility] Patient Care team information Care Team Personnel Name: MD Jaden, Miguelina Rich Position: Physician Member Role: Primary Care Provider Address: Address: [address] [place] [address], [place] [address] Care Team Related Persons Name: CASTRO MALONE Address: home [address] [facility] [phone] Name: CASTRO MALONE Address: [place] Address: home [address] [place], [place] [id number]
--- NOTE | 2023-04-23 00:40 | CT Scan Report ---
Exam(s): CTA CHEST W/WO Contrast IV Amt: 117ml EXAM: CT Angiography Chest Without and With Intravenous Contrast CLINICAL HISTORY: Reason for exam: Chest pain. TECHNIQUE: Axial computed tomographic angiography images of the chest without and with intravenous contrast. Automated exposure control was utilized for the study. A dose lowering technique was utilized adhering to the principles of ALARA. MIP reconstructed images were created and reviewed. CONTRAST: Patient received 117ml of IV contrast COMPARISON: No relevant prior studies available. FINDINGS: Pulmonary arteries: Unremarkable. No pulmonary embolism. Aorta: No acute findings. Normal thoracic aorta without evidence of dissection, aneurysm, or intramural hematoma. Lungs: Lungs demonstrate bilateral dependent atelectasis. No mass. Pleural space: Unremarkable. No significant effusion. No pneumothorax. Heart: Unremarkable. No cardiomegaly. No significant pericardial effusion. No evidence of RV dysfunction. Bones/joints: No acute fracture. No dislocation. Soft tissues: Unremarkable. Lymph nodes: Unremarkable. No enlarged lymph nodes. IMPRESSION: Normal thoracic aorta without evidence of dissection, aneurysm, or intramural hematoma. Electronically signed by: Eder Gómez M.D. 04/23/23 00:38 AM
[2023-04-23] MEDS ORDERED: KETOROLAC TROMETHAMINE 15 MG/ML VIAL IV PRN (00:45)
[2023-04-23 07:43] LABS: Basophils # (auto) 0.04 K/uL (0.00-0.20); Basophils % (auto) 0.7 %; Eosinophils # (auto) 0.28 K/uL (0.00-0.50); Eosinophils % (auto) 4.6 %; Hematocrit (blood only) 42.7 % (42.0-52.0); Hemoglobin 14.8 g/dl (14.0-18.0); Immature Granulocytes # (auto) 0.01 K/uL (0.01-0.20); Immature Granulocytes % (auto) 0.2 %; Lymphocytes # (auto) 1.53 K/uL (1.20-3.40); Mean Corpuscular Hemoglobin 30.9 pg (25.0-34.0); Mean Corpuscular Hgb Conc 34.7 g/dL (32.0-36.0); Mean Corpuscular Volume 89.1 fL (80.0-100.0); Mean Platelet Volume 10.5 fL (9.4-12.4); Monocytes % (auto) 13.1 %; Neutrophils # (auto) 3.47 K/uL (1.40-6.50); Neutrophils % (auto) 56.4 %; Platelet Count 273 K/uL (130-400); RDW Coefficient of Variation 12.5 % (11.5-14.5); RDW Standard Deviation 41.3 fL (36.4-46.3); Red Blood Count 4.79 M/uL (4.70-6.10); White Blood Count 6.13 K/ul (4.8-10.8)
[2023-04-23 08:00] LABS: BUN Creatinine Ratio 16.1 (10-20); Calcium 9.2 mg/dl (8.6-10.3); Creatinine Clr Calc Pharmacy 102.7 ml/min; Est GFR (African American) 86.5 ml/min; Est GFR (Non-African American) 74.6 ml/min; Potassium 4.1 mmol/L (3.5-5.1)
--- NOTE | 2023-04-23 14:34 | XCELERA ---
[id number] \\[email or web address]\[email or web address]_[id number]
--- NOTE | 2023-04-23 17:06 | Discharge Summary ---
Date of Service date of admission - April 22, 2023 date of discharge - April 23, 2023 Admission HPI Per Admitting Provider Lalo is a pleasant 42-year-old male with PMH of syncope (secondary to pleurisy) and nephrolithiasis. He presented for chest pain that started at 0300 on 04/22. The chest pain woke him up from sleep, and he said he felt his heart was beating out of his chest, and that he had bounding pulses in his feet/hands. He was able to fall back asleep after a while, but woke up at 0600 with left-sided chest pain. He describes the pain as constant (no waxing or waning), and describes it as "chest pressure" that is located at his left armpit and wraps around to his left anterior chest wall and left upper back. He rates the pain 5 out of 10. He has never had a similar episode like this one. The pain radiates down his left arm. He notes that leaning forward in a seated position, and then leaning back causes some alleviation/exacerbation of pain. He denies pleuritic CP or SOB. No recent sick contacts. No history of GERD. No recent changes in diet, and patient says he eats a fairly low-salt diet. He has not noticed any tick bites on his body recently. Of note, he has had bilateral lower extremity swelling x2 months. He relays a history of sharp left lower leg pain twice over the past 2 weeks; which has been 10 out of 10 when it comes on. He also endorses recent weight gain of 20 pounds over the past 3 months. Patient endorses minimal, social alcohol use; denies smoking, tobacco use, recreational drug use. Hx of one syncopal episode 10-12 years ago, which was secondary to dehydration/pleurisy. Patient does not take medications on a daily basis. Vital stable at time admission. ED course: Nitro 0.4 mg SL Aspirin 324 mg p.o. ROS: Patient endorses headache, recent weight gain, left chest discomfort, and bilateral lower extremity pitting/swelling. Patient denies fever, chills, night sweats, dizziness, lightheadedness, pleuritic CP, SOB, cough, abdominal pain, N/B/D, urinary symptoms, numbness and tingling down the legs bilaterally. Family history: Significant history of father, grandfather, and great grandfather all having MIs in their 40s. No personal PMH of [place], CVA, DVT/PE, DM. Principal Diagnosis 1. chest pain - negative stress test; normal CT scan of chest; musculoskeletal etiology? 2. edema of legs - intermittent - due to right heart enlargement ? 3. suspected sleep apnea - sleep study needed 4. mild right heart enlargement - may be due to #3 5. palpitations - 30 day monitor recommended 6. elevated blood pressure without diagnosis of HTN 7. elevated fasting glucose - outpatient follow-up needed Discharge Exam gen - NAD, pleasant, obese neck - no JVD heart - RRR, s1 s2, no murmur lungs - CTA b/l chest - no reproducible chest wall tenderness to palpation abd - soft NT ND BS+ ext - no edema, pulses 2+ b/l musculo - moving either arm does not induce any chest pain Discharge Data Allergies Allergy/AdvReac Type Severity Reaction Status Date / Time amoxicillin Allergy Unknown Verified 03/19/23 11:47 Penicillins AdvReac Mild NAUSEA Verified 01/11/21 20:02 VOMITING Procedures Performed Stress Echocardiogram: Ordered Studies Chest X-Ray 04/22/23 14:06 XR chest 1V not portable HISTORY: Hypertension. Chest pain, nonspecific COMPARISON: Chest 04/12/2021. FINDINGS: The cardiac silhouette remains mildly enlarged. The lungs are clear. No pleural effusions. No pneumothorax. No acute fractures identified. IMPRESSION: Stable mild cardiomegaly. Otherwise, no acute process within the chest. ACT 112: Negative or not required by law. Electronically signed by: Temo Louie M.D. 04/22/2023 2:35 PM Venous Doppler Study 04/22/23 18:34 ULTRASOUND BILATERAL LOWER EXTREMITY VENOUS CLINICAL HISTORY: Lower extremity edema. COMPARISON STUDY: No priors. TECHNIQUE: Real-time, grayscale, and color Doppler sonography of the deep veins of the right and left lower extremity was performed from the inguinal crease to the calf. Compression and augmentation were utilized. FINDINGS: There is no sonographic evidence of deep venous thrombosis identified in the right or left lower extremity. The common femoral, superficial femoral, and popliteal veins are patent and normally compressible bilaterally. The greater saphenous vein and the profunda femoris vein at the junction with the common femoral vein are clear in both legs. The visualized calf veins are patent bilaterally. IMPRESSION: There is no sonographic evidence of deep venous thrombosis identified in the right or left lower extremity. ACT 112: Negative or not required by law. Electronically signed by: Chito Callahan M.D. 04/22/2023 8:01 PM Chest CTA 04/22/23 23:07 Exam(s): CTA CHEST W/WO Contrast IV Amt: 117ml EXAM: CT Angiography Chest Without and With Intravenous Contrast CLINICAL HISTORY: Reason for exam: Chest pain. TECHNIQUE: Axial computed tomographic angiography images of the chest without and with intravenous contrast. Automated exposure control was utilized for the study. A dose lowering technique was utilized adhering to the principles of ALARA. MIP reconstructed images were created and reviewed. CONTRAST: Patient received 117ml of IV contrast COMPARISON: No relevant prior studies available. FINDINGS: Pulmonary arteries: Unremarkable. No pulmonary embolism. Aorta: No acute findings. Normal thoracic aorta without evidence of dissection, aneurysm, or intramural hematoma. Lungs: Lungs demonstrate bilateral dependent atelectasis. No mass. Pleural space: Unremarkable. No significant effusion. No pneumothorax. Heart: Unremarkable. No cardiomegaly. No significant pericardial effusion. No evidence of RV dysfunction. Bones/joints: No acute fracture. No dislocation. Soft tissues: Unremarkable. Lymph nodes: Unremarkable. No enlarged lymph nodes. IMPRESSION: Normal thoracic aorta without evidence of dissection, aneurysm, or intramural hematoma. Electronically signed by: Eder Gómez M.D. 04/23/23 00:38 AM Hospital Course (1) Chest pain: Patient presented with somewhat constant, squeezing chest pain. Pain radiated to the left axillary region and left arm. Strong family history of CAD/MIs in males in their 40s (father, paternal GF, pateral great-GF). Despite the constant nature of his symptoms HS Troponins were negative x 3. EKG was wnl. CXR was wnl. CRP mildly elevated at 0.91. ESR WNL at 9. Venous dopplers of the LEs revealed no evidence of DVT. D-dimer Negative. BNP normal (4). Telemetry monitoring was normal. CTA Chest was negative for PE. Thoracic aorta was normal without evidence of dissection, aneurysm, or intramural hematoma. Exercise stress echocardiogram was negative for ischemia/wall motion abnormalities. He did NOT have chest pain or other cardiopulmonary symptoms during the stress test. It is possible that his symptoms were musculoskeletal in etiology but certainly not classic for such. None of his history suggested pericarditis. None of his symptoms were suggestive of a GI cause of his presentation. I recommended he see Dr Antoine Iqbal from [facility] Cardiology in follow-up. If he has recurrent symptoms the next step in his work-up may be a cardiac catheterization. (2) Right ventricular dilation: Seen on echocardiogram. Due to #3? No pulmonary disease or pulmonary cause likely (CTA Chest negative, no prior h/o PE, etc). Cardiology f/u recommended. (3) Suspected sleep apnea: reports he has SEVERE snoring with witnessed apneas. In light of #2 recommended era sleep study. (4) Palpitations: No dysrhythmia seen while hospitalized. In light of his presentation I recommended a 30-day event monitor. (5) Bilateral lower extremity edema: None seen while hospitalized. He has the edema on an intermittent basis at home. Edema is worse at the end of the day, and is nearly absent when he wakes up in the morning. Edema could be from venous insufficiency OR due to his right ventricular dilatation seen. The right heart dilatation could be from undiagnosed and untreated BEKAH. Prescription for lasix prn was given along with K supplementation. Recommended he f/u with Dr Antoine Iqbal in light of his strong family history of CAD, the right heart enlargement, intermittent edema, etc. (6) Elevated blood pressure reading without diagnosis of hypertension: Multiple BPs were elevated throughout the stay. Recommended purchase of blood pressure cuff and to check BPs regularly at home. Report these to his PCP. DASH diet handout provided. (7) Elevated fasting glucose: fasting glucose was 125. f/u with PCP for such; needs Hba1c surveillance, etc. Total Time Total Time Spent Total Time Spent (In Minutes): 45 Discharge Plan Discharge Items Patient Disposition: Home - Self-Care Reason For Visit: CHEST PAIN, EDEMA Discharge Diagnosis: 1. chest pain - no evidence of heart attack; negative stress test; normal CT scan of chest (no blood clots, aneurysm, etc) 2. edema of legs - intermittent - due to right heart enlargement ? vein disease ? 3. suspected sleep apnea - sleep study needed 4. mild right heart enlargement - may be due to #3 5. palpitations - 30 day monitor recommended at home 6. elevated blood pressures - please purchase a blood pressure machine and take your blood pressure daily on your upper arm; show these values to your family doctor 7. elevated fasting glucose - your fasting glucose was 125; please talk with your family doctor about screening for pre-diabetes and diabetes Activity: As commented below Activity Comment: gradually increase as tolerated over the next week Non-emergency contact: Primary Care Provider Call non-emergency contact if: you have any medication questions and your symptoms worsen Follow-up/Referrals: Antoine Iqbal MD [Physician] - (Please call office for appointment.) Aria Jung MD [Primary Care Provider] - 04/30/23 2:30 pm Diet: Heart Healthy Addtl Attending Provider Instructions: Mr Lunsford, You were hospitalized due to chest discomforts. Blood work for the heart was normal - we did not find a heart attack. EKG was normal. Telemetry monitoring of your heart rhythm was normal. CT scan of the chest was negative for fluid, pneumonia, blood clots, dissection, aneurysm, and other lung problems that can cause pain. You underwent a stress test and this returned normal. A negative stress test suggests that we are about 90-95% confident that your pain was not heart related. There are false negative tests at times, however. Taken in total all of your heart testing was normal except for the mild enlargement of the right side of your heart. This heart finding does not cause pain. Right heart enlargement can occur if someone has severe sleep apnea of long-standing duration. The swelling in your feet may be from prolonged standing and your veins not working perfectly to keep the fluid out. Compression stockings ("Knee highs") do help with prevention of swelling. The other possibility is that the swelling is from the right heart enlargement. I have prescribed furosemide water pill for you to take on an as needed basis if the swelling is severe. If you take the furosemide be sure to take the potassium supplement with it. Just use these medications NEEDED (not regularly/not daily). We will set you up for the heart monitor. It will be mailed to your home. I would also recommend close follow-up with Dr Iqbal from cardiology in light of your family history of heart disease, the right heart findings, etc. Please see your family doctor as scheduled in 1 week. Please ask for a referral for a sleep study ERA. Until you have follow-up with your family doctor please take it easy - no strenuous activities over the next few days. It is possible that your pain was from a musculoskeletal strain and strenuous activities might cause the pain to return. Return to [facility] if - * you have shortness of breath * you have recurrent chest pains * you have severe swelling/edema of the legs, abdomen, etc. * any other concerns It was our pleasure to care for you! Pending Studies at Discharge: No Stand-Alone Forms: [facility], Smoking Cessation Medications and DC Order Prescriptions: New furosemide [Lasix] 20 mg tablet 20 mg PO QAM PRN (Reason: edema) Qty: 14 0RF potassium chloride 10 mEq capsule, extended release 10 meq PO DAILY PRN (Reason: only when you take furosemide) Qty: 14 0RF Discharge Orders: Discharge Order (Routine); Ordered 04/23/23 Ordered By: Soren Segal/Other Patient Handouts: Symptoms of a Heart Attack, DASH Plan Eat Heart Healthy Food, Measuring Your Pain, Communicating About Pain, What Is High Blood Pressure Admission Data Admit Date/Time: 04/22/23 18:54 Attending Provider: Soren Rodriguez Admit Provider: Soren Cantrell Primary Care Provider: Aria Jung Other Providers: Soren Cantrell Other Interventions: Discharge Summary Assessment (RN) Last Done: 04/23/23 16:49 Coding Level of Care Code 60782 INP/OBS DISCH >30 MIN Diagnoses Chest pain R07.9 Right ventricular dilation I51.7 Suspected sleep apnea R29.818 Palpitations R00.2 Bilateral lower extremity edema R60.0 Elevated blood pressure reading without diagnosis of hypertension R03.0 Elevated fasting glucose R73.01
== END 2023-04-23 17:34 | disposition home or self-care (01) ==
LOC: 2N 13:48 → ED 13:48 → SUATTDRO 18:54 → 2N 21:41
DX: R00.2 Palpitations; R60.0 Localized edema; Z82.49 Family history of ischemic heart disease and other diseases of the circulatory system; M79.602 Pain in left arm; R07.9 Chest pain, unspecified; I51.7 Cardiomegaly; Z88.0 Allergy status to penicillin